=== PATIENT | female | born 2000 | race Two or more races ===

== ENCOUNTER 2024-05-17 11:58 | Emergency (ER) | payer OTHER ==
[~2024-05-17] VITALS: Ht 172.7 cm; Wt 76.8 kg
[2024-05-17] MEDS ORDERED: MULTTAB20 PO (12:29)
[2024-05-17] MEDS: LIDOCAINE 1% MDV 20ML VIAL INFIL ONE (14:35)
[2024-05-17] MEDS: LIDOCAINE 4% CREAM 5GM (LMX4) TOP ONE (14:36)
[2024-05-17] MEDS ORDERED: CEPH500C PO (15:09)
[2024-05-17 15:17] VITALS: BP 112/65; TEMP 98.3; O2SAT 98
== END 2024-05-17 15:23 | disposition home or self-care (01) ==
LOC: M ED 11:58
DX: L02.91 Cutaneous abscess, unspecified (principal); Z91.013 Allergy to seafood; Z79.2 Long term (current) use of antibiotics; Z79.810 Long term (current) use of selective estrogen receptor modulators (SERMs)

== ENCOUNTER → 2024-06-13 | Outpatient (CLI) | payer OTHER ==
[~2024-06-13] MED LIST: CEPH500C PO; MULTTAB20 PO
== END ==
LOC: M RAD 13:40
PROVIDERS: ATTEND Obstetrics & Gynecology
DX: Z34.92 Encounter for supervision of normal pregnancy, unspecified, second trimester (principal)

== ENCOUNTER 2024-08-02 12:32 | Outpatient (CLI) | payer OTHER ==
[~2024-08-02] VITALS: Ht 172.7 cm; Wt 85.5 kg
[2024-08-02 12:51] VITALS: BP 129/77
[2024-08-02] MEDS ORDERED: ASPI81CH33 PO (12:54)
== END 2024-08-02 16:10 | disposition home or self-care (01) ==
LOC: M LDO 12:32
PROVIDERS: ATTEND Advanced Practice Midwife
DX: O47.1 False labor at or after 37 completed weeks of gestation (principal); Z14.8 Genetic carrier of other disease; Z3A.39 39 weeks gestation of pregnancy; Z91.013 Allergy to seafood
CPT/HCPCS: 59025; G0463